=== PATIENT | female | born 1990 | race Caucasian/White ===

== ENCOUNTER 2019-07-29 10:59 | Emergency (ER) | payer OTHER ==
[~2019-07-29] VITALS: Ht 165.1 cm; Wt 83.5 kg
--- NOTE | 2019-07-29 11:09 | NUR ---
SEEN IN ER BY [employer] BULBS/MD
== END 2019-07-29 11:27 | disposition home or self-care (01) ==
LOC: ER 10:59
DX: J20.9 Acute bronchitis, unspecified (principal)
CPT/HCPCS: 99283